=== PATIENT | female | born 2000 | race Caucasian/White ===

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

== ENCOUNTER 2019-01-19 15:23 | Emergency (ER) | payer SELFPAY ==
[~2019-01-19] VITALS: Ht 144.8 cm; Wt 60.0 kg
[~2019-01-19 15:23] MED LIST: FAMO-96 PO; POLY17PO6 PO
[2019-01-19 15:26] VITALS: BP 121/59; PULSE 86; RESP 18; Ht 144.8 cm; Wt 60.0 kg
[2019-01-19] MEDS ORDERED: PRED20TA PO (17:05)
[2019-01-19] MEDS ORDERED: TRIA15OI9 TOP (17:05)
--- NOTE | 2019-01-19 17:10 | ERD ---
ER Documentation Chief Complaint Chief Complaint RIGHT PALM OF HAND S/P BLISTERS & ITCHINESS X 1 MONTH AGO HPI This is a 18-year-old female with a nonsignificant past medical history presents ED with complaints of rash on right palmar surface of hand that is been present for the past 3 months. Patient states that the rash initially started as itchy dry bumps and developed into a cracking dry rash. Denies fever, chills, tingling, numbness, lack sensation other symptoms. Denies history of eczema ROS All systems reviewed and are negative except as per history of present illness. Medications Home Meds Active Scripts Triamcinolone Acetonide (Triamcinolone Acetonide) 0.5% - 15 Gm Oint..gm., 1 APPLIC TOP BID, #1 TUB Prov:JARED MCKENZIE PA-C 01/19/19 Prednisone* (Prednisone*) 20 Mg Tab, 40 MG PO DAILY for 4 Days, TAB Prov:JARED MCKENZIE PA-C 01/19/19 Polyethylene Glycol* (Miralax*) 17 Gm Powd.pack, 17 GM PO DAILY, #7 Prov:BELINDA JONES MD 09/04/16 Famotidine* (Pepcid*) 20 Mg Tablet, 20 MG PO BID for 10 Days, TAB Prov:BELINDA JONES MD 09/04/16 Allergies Allergies: Coded Allergies: No Known Allergy (Unverified , 01/19/19) PMhx/Soc Medical and Surgical Hx: pt denies Medical Hx, pt denies Surgical Hx Hx Alcohol Use: No Hx Substance Use: No Hx Tobacco Use: No FmHx Family History: No diabetes Physical Exam Vitals Vital Signs Date Temp Pulse Resp B/P (MAP) Pulse Ox O2 O2 Flow FiO2 Time Delivery Rate 01/19/19 100.8 86 18 121/59 98 15:26 (79) Physical Exam Physical Exam Vitals signs: Reviewed by me. General: Well developed, well nourished, in no acute distress. Patient is awake and alert. Head: Normocephalic, atraumatic. Eyes: Normal conjunctiva, Pupils PERRLA, EOM intact grossly ENT: Pharynx is clear, Moist mucous membranes, external ears, nose and mouth normal Neck: Supple, no masses, lymphadenopathy or JVD Respiratory: Clear to auscultation bilaterally with no wheezing, rhonchi, rales, no distress Cardiovascular: RRR, no murmurs, rubs, or gallops Neurologic: Alert and oriented, moving all extremities, normal speech, no focal weakness, no cerebellar signs. Normal mentation Skin: Dry patchy rough rash on patient's right palmar surface of right hand resembling dyshidrotic eczema Psych: Normal mood Results 24 hrs Current Medications Medications Dose Sig/Yvette Start Time Status Last (Trade) Ordered Route PRN Stop Time Admin Dose Reason Admin Prednisone 60 mg ONCE ONCE 01/19/19 (Prednisone) PO 17:30 01/19/19 17:31 Procedures/MDM ER COURSE: The patient was given prednisone The medication was well tolerated and the patient reports improvement in symptoms. The patient was stable throughout ED course. I kept the patient and/or family informed of laboratory and diagnostic imaging results throughout the emergency room course. The patient was promptly evaluated and a treatment plan was devised based on H&P and other data. This plan was discussed with the patient who agreed and had no further questions or concerns prior to discharge. MEDICAL DECISION MAKIN-year-old female presents ED with rash on right palmar surface of hand times 3 months. This is likely dyshidrotic eczema. Patient was given oral and topical steroids. Patient was advised to follow-up with dermatology if rash does not resolve. No evidence of STS, TEN, Lyme's disease, syphilis, [place] spotted fever, shingles, disseminated gonorrhea chlamydia, DIC, TTP, ITP, sepsis, necrotizing fasciitis, gangrene, or other emergent condition. Patient's vitals are stable and can be managed with outpatient close follow-up. Advised patient to follow-up with her primary care in the next 48 hours. Advised patient return to ED with any worsening symptoms. DISPOSITION PLAN: We discussed follow up with the patient's primary care doctor within 24 to 48 hours. Patient counseled regarding my diagnostic impression and care plan. Prior to discharge all questions answered. Pt agrees with treatment plan and understands strict return precautions. Precautionary instructions provided including instructions to return to the ER if not improving or for any worsening or changing symptoms or concerns. SPECIALIST FOLLOW UP RECOMMENDED: Derm Patient has been advised to follow up with primary care in 1-2 days. Disclaimer: Inadvertent spelling and grammatical errors are likely due to EHR/dictation software use and do not reflect on the overall quality of patient care. Also, please note that the electronic time recorded on this note does not necessarily reflect the actual time of the patient encounter. Departure Diagnosis: Primary Impression: Dyshidrotic eczema Condition: Stable Patient Instructions: Atopic Dermatitis (Eczema) Referrals: YASMINE COLLINS MD,WILLY SANTOS,DENNISE SHIRLEY,BELINDA WREN,ALMA HEAD,BRINA ARREGUIN,BRINA Strickland [facility] YOU HAVE RECEIVED A MEDICAL SCREENING EXAM AND THE RESULTS INDICATE THAT YOU DO NOT HAVE A CONDITION THAT REQUIRES URGENT TREATMENT IN THE EMERGENCY DEPARTMENT. FURTHER EVALUATION AND TREATMENT OF YOUR CONDITION CAN WAIT UNTIL YOU ARE SEEN IN YOUR DOCTORS OFFICE WITHIN THE NEXT 1-2 DAYS. IT IS YOUR RESPONSIBILITY TO MAKE AN APPOINTMENT FOR FOLOW-UP CARE. IF YOU HAVE A PRIMARY DOCTOR --you should call your primary doctor and schedule an appointment IF YOU DO NOT HAVE A PRIMARY DOCTOR YOU CAN CALL OUR PHYSICIAN REFERRAL HOTLINE AT IF YOU CAN NOT AFFORD TO SEE A PHYSICIAN YOU CAN CHOSE FROM THE FOLLOWING [facility] [address] [facility] [address] [facility] [address] [facility] [address] [facility]. [facility] [address] [facility]. [facility]. [address] Additional Instructions: Patient advised to return to the ED immediately for new or worsening symptoms. Patient advised to follow up with primary care provider in the next 24-48 hours. Patient verbalized understanding and agrees with treatment plan and course of action. If patient has no primary care they may follow up with one of the [facility] clinics listed on the following page or one of the options listed below [facility] + [facility] [address] [place] [address] or [facility] [address] [place] [address] or [facility] [address] [place] [address] JARED MCKENZIE PA-C Jan 19, 2019 17:10
[2019-01-19] MEDS ORDERED: predniSONE 20 MG TAB PO ONE (17:30)
== END 2019-01-19 17:13 | disposition home or self-care (01) ==
LOC: FTE 15:23
DX: L30.1 Dyshidrosis [pompholyx] (principal)
CPT/HCPCS: 99283; J7512

== ENCOUNTER 2019-06-10 16:18 | Emergency (ER) | payer OTHER ==
[~2019-06-10] VITALS: Ht 154.9 cm; Wt 61.9 kg
[~2019-06-10 16:18] MED LIST changes: +PRED20TA PO; +TRIA15OI9 TOP
[2019-06-10 16:47] VITALS: BP 118/56; PULSE 74; RESP 18; Ht 154.9 cm; Wt 61.9 kg
--- NOTE | 2019-06-10 19:51 | ERD ---
ER Documentation Chief Complaint Chief Complaint LUMP ON STERNAL AREA X2 DAYS HPI 18-year-old female with no reported past medical history, family history significant for mother with breast cancer before age 40 who comes in with complaint of "lump on sternum' area over the past 2 days. Denies actual breast tissue lump and reports area is only tender when she palpates. She otherwise denies fevers, chills, chest pain, shortness of breath, dyspnea, recent fall or injury, or any other concerning symptoms. Explained to patient in detail she needs to follow-up with PMD in order to have additional appropriate work-up. ROS All systems reviewed and are negative except as per history of present illness. Medications Home Meds Active Scripts Triamcinolone Acetonide (Triamcinolone Acetonide) 0.5% - 15 Gm Oint..gm., 1 APPLIC TOP BID, #1 TUB Prov:JARED MCKENZIE PA-C 01/19/19 Prednisone* (Prednisone*) 20 Mg Tab, 40 MG PO DAILY for 4 Days, TAB Prov:JARED MCKENZIE PA-C 01/19/19 Polyethylene Glycol* (Miralax*) 17 Gm Powd.pack, 17 GM PO DAILY, #7 Prov:BELNIDA JONES MD 09/04/16 Famotidine* (Pepcid*) 20 Mg Tablet, 20 MG PO BID for 10 Days, TAB Prov:BELINDA JONES MD 09/04/16 Allergies Allergies: Coded Allergies: No Known Allergy (Unverified , 01/19/19) PMhx/Soc Medical and Surgical Hx: pt denies Medical Hx, pt denies Surgical Hx Hx Alcohol Use: No Hx Substance Use: No Hx Tobacco Use: No Smoking Status: Never smoker FmHx Family History: No diabetes, No coronary disease, No other Physical Exam Vitals Vital Signs Date Temp Pulse Resp B/P (MAP) Pulse Ox O2 O2 Flow FiO2 Time Delivery Rate 06/10/19 98.8 74 18 118/56 95 16:47 (76) Physical Exam Const: No acute distress Head: Atraumatic Eyes: Normal Conjunctiva ENT: Normal External Ears, Nose and Mouth. Neck: Full range of motion. No meningismus. Resp: Clear to auscultation bilaterally Cardio: Regular rate and rhythm, no murmurs, no appreciable nodule on exam to sternum Abd: Soft, non tender, non distended. Normal bowel sounds Skin: No petechiae or rashes Back: No midline or flank tenderness Ext: No cyanosis, or edema Neur: Awake and alert Psych: Normal Mood and Affect Procedures/MDM 18-year-old female presents with complaint of lump to the sternum. I have low suspicion for any acute process warranting further emergent care or work-up in the ED. Patient agrees to follow-up with her PMD for appropriate work-up if indicated. I have low suspicion for acute abscess, infected cyst, or any other pathology warranting further emergent care work-up such as imaging or labs. Symptoms likely represent small cysts but given her family history she should follow-up with PMD for work-up if indicated. DISPOSITION PLAN: We discussed follow up with the patient's primary care doctor within 24 to 48 hours. Patient counseled regarding my diagnostic impression and care plan. Prior to discharge all questions answered. Pt agrees with treatment plan and understands strict return precautions. Precautionary instructions provided including instructions to return to the ER if not improving or for any worsening or changing symptoms or concerns. Disclaimer: Inadvertent spelling and grammatical errors are likely due to EHR/dictation software use and do not reflect on the overall quality of patient care. Also, please note that the electronic time recorded on this note does not necessarily reflect the actual time of the patient encounter. Departure Condition: Stable Patient Instructions: Breast Biopsy, Percutaneous Referrals: [facility] YOU HAVE RECEIVED A MEDICAL SCREENING EXAM AND THE RESULTS INDICATE THAT YOU DO NOT HAVE A CONDITION THAT REQUIRES URGENT TREATMENT IN THE EMERGENCY DEPARTMENT. FURTHER EVALUATION AND TREATMENT OF YOUR CONDITION CAN WAIT UNTIL YOU ARE SEEN IN YOUR DOCTORS OFFICE WITHIN THE NEXT 1-2 DAYS. IT IS YOUR RESPONSIBILITY TO MAKE AN APPOINTMENT FOR FOLOW-UP CARE. IF YOU HAVE A PRIMARY DOCTOR --you should call your primary doctor and schedule an appointment IF YOU DO NOT HAVE A PRIMARY DOCTOR YOU CAN CALL OUR PHYSICIAN REFERRAL HOTLINE AT IF YOU CAN NOT AFFORD TO SEE A PHYSICIAN YOU CAN CHOSE FROM THE FOLLOWING [facility] [address] [facility] [address] [facility] [facility] [address] [facility] [address] [facility]. [facility] [address] [facility]. [facility]. [address] Additional Instructions: Call your primary care doctor TOMORROW for an appointment during the next 2-3 days.See the doctor sooner or return here if your condition worsens before your appointment time. WALTER LOYA PA-C Jun 10, 2019 19:51
== END 2019-06-10 19:54 | disposition home or self-care (01) ==
LOC: FTE 16:18
DX: R22.2 Localized swelling, mass and lump, trunk (principal); Z85.3 Personal history of malignant neoplasm of breast
CPT/HCPCS: 99282